=== PATIENT | female | born 1940 ===

== ENCOUNTER 2021-10-25 05:45 | Day surgery (SDC) | payer OTHER ==
[2021-10-25] MEDS ORDERED: PERCOCET 5-3251 EACH PO (14:01)
[2021-10-25] MEDS ORDERED: RECTICARE30 GM TOP (14:01)
== END 2021-10-25 16:10 | disposition home or self-care (01) ==
LOC: CIR.AMB 05:45 → ADM 08:15 → CIR.AMB 09:15
PROVIDERS: ATTEND Surgery
DX: K62.1 Rectal polyp (principal); D12.9 Benign neoplasm of anus and anal canal; Z20.822 Contact with and (suspected) exposure to COVID-19; I10 Essential (primary) hypertension; K29.70 Gastritis, unspecified, without bleeding